=== PATIENT | female | born 1995 | race American Indian/Alaskan Native ===

== ENCOUNTER 2018-09-12 22:56 | Emergency (ER) | payer OTHER ==
--- NOTE | 2018-09-13 01:11 | OBHP ---
Datetime: 09/12/2018 23:15 IP Adm Impression: , intrauterine IP Admit Plan: Observation/Evaluation; Discharge home Admit Comment, IP Provider: 23 y/o female 35.6 wk GA presents to [facility] w/ c/o fluid leak and abd ominal cramping, which began 2 hours ago. She endorses increased urinary frequency, denies fever, dys urea and urinary urgency. She denies n/v/c/d. She denies gush of fluid, vaginal bleed. She was last s exually active 2.5 weeks ago. OB: Dr. Lanza Pmhx: lactose intolerant, childhood asthma HomeRx: vitamins Famhx: Mother w/ HTN SurgHx: denies SocialHx: denies toxic habits Allergies: NKDA ROS: negative except HPI Phyiscal Exam: Gen: appears comfortable, no acute distress Heart: S1 S2, normal RRR Lungs: normal resp effort, clear bilaterally SVE (By Dr. Purdy): cervix closed. Speculum exam shows thick white cheesey discharge Extremities: no edema/erythema/tenderness Assessment and Plan: 23 y/o female 35.6 wk GA presents to [facility] w/ c/o fluid leak and abdominal cramping. Speculum exam: no pooling, thick white discharge likley secondary to yeast infxn, Nitrazine negati ve NST reactive, [place]: irregular contractions Patient advised to start Terazol VAG x 7 days Patient stable for discharge to home. Will follow up w/ OB within 1 week. Case discussed w/ attending, Dr. Gurwinder Chavarria, pgyi Addendum by Dr. Purdy: I have evaluated the patient independently and I agree with the above Pelvic Type - PN: Adequate Extremities - PN: Normal Abdomen - PN: Normal Back - PN: Not Done Breast - PN: Not Done Lungs - PN: Normal Heart - PN: Normal Thyroid - PN: Not Done Neurologic - PN: Not Done HEENT - PN: Not Done General - PN: Normal FHR - Baseline A Provider: 145 Contraction Comments Provider: irregular Gestation - Est Wks by US: 35.6 Pool Provider: Negative Nitrazine Provider: Negative Vital Signs Provider: Reviewed; Within Normal Limits IP Chief Complaint: Suspected ruptured membranes NICHD Variability Prov Fetus A: Moderate 6-25bpm NICHD Accel Fetus A IP Provider: [id number] NICHD Decel Fetus A IP Provider: None Dilatation, Provider: 0 Genitourinary Exam: Not Done DTRs - PN: Not Done
--- NOTE | 2018-09-13 01:13 | OBDCSUM ---
Datetime: 09/13/2018 00:04 Discharged to, Provider: Home Follow up at, Provider: Dr Lanza Disch Instr Activity: Normal activity Disch Instr Diet: Regular Discharge Time: 09/13/2018 01:10 Follow up in weeks, Provider: 09/13/2018 Disch Referrals: None Disch Activity Restrictions: Nothing in vagina - [place], tampons, douche Discharge Diagnosis Prov Other: vaginitis affecting
[2018-09-13 04:22] VITALS: BP 123/74; PULSE 95
== END 2018-09-13 01:10 | disposition home or self-care (01) ==
LOC: H.EROB2 22:56
DX: O34.63 Maternal care for abnormality of vagina, third trimester (principal); N89.8 Other specified noninflammatory disorders of vagina; O26.93 Pregnancy related conditions, unspecified, third trimester; R10.2 Pelvic and perineal pain; Z3A.35 35 weeks gestation of pregnancy